=== PATIENT | female | born 1995 | race Caucasian/White ===

== ENCOUNTER 2018-06-26 12:13 | Emergency (ER) | payer MEDICAID ==
[~2018-06-26] VITALS: Ht 167.6 cm; Wt 102.0 kg
[2018-06-26 12:55] VITALS: BP 160/94
[2018-06-26] MEDS ORDERED: predniSONE 20 mg tablet PO ONE (13:50)
[2018-06-26] MEDS ORDERED: PRED20TA PO (13:52)
== END 2018-06-26 14:14 | disposition home or self-care (01) ==
LOC: ER 12:16
DX: T43.215A Adverse effect of selective serotonin and norepinephrine reuptake inhibitors, initial encounter (principal); Z88.8 Allergy status to other drugs, medicaments and biological substances; Z79.899 Other long term (current) drug therapy; Y92.89 Other specified places as the place of occurrence of the external cause
CPT/HCPCS: 99283; J7512